=== PATIENT | female | born 1940 | race Caucasian/White ===

== ENCOUNTER → 2016-09-19 17:52 | Outpatient (CLI) | payer MEDICARE, OTHER ==
[2010-09-19 09:17] VITALS: BMI 29.2
== END | disposition home or self-care (01) ==
LOC: D.MAMMO 07-31 10:00
DX: R92.2 Inconclusive mammogram (principal)

== ENCOUNTER 2016-11-12 13:12 | Outpatient (CLI) | payer MEDICARE, OTHER ==
[~2016-11-12] VITALS: Ht 162.6 cm; Wt 77.3 kg
[2016-11-12] MEDS ORDERED: SINEMET CR 50-1 EACH PO (13:56)
[2016-11-12] MEDS ORDERED: LOPRESSOR25 MG PO (13:56)
[2016-11-12] MEDS ORDERED: KLONOPIN1 MG PO (13:57)
[2016-11-12] MEDS ORDERED: OS-CAL500 MG PO (13:57)
[2016-11-12] MEDS ORDERED: TRAZODONE HCL150 MG PO (13:57)
[2016-11-12] MEDS ORDERED: WELLBUTRIN SR150 MG PO (13:57)
[2016-11-12 14:06] VITALS: BP 131/71; Ht 162.6 cm; Wt 77.3 kg
--- NOTE | 2016-11-12 14:20 | NUR ---
1400- PROLIA INJECTION TO LEFT ARM LOT #: [id number] EXP: 05/19
== END 2016-11-12 14:20 | disposition home or self-care (01) ==
LOC: D.OPS 13:12
DX: M81.0 Age-related osteoporosis without current pathological fracture (principal)

== ENCOUNTER → 2016-11-22 13:08 | Outpatient (CLI) | payer MEDICARE, OTHER ==
[2016-11-12 14:06] VITALS: BMI 29.2
[~2016-11-22 13:08] MED LIST: KLONOPIN1 MG PO; LOPRESSOR25 MG PO; OS-CAL500 MG PO; SINEMET CR 50-1 EACH PO; TRAZODONE HCL150 MG PO; WELLBUTRIN SR150 MG PO
== END | disposition home or self-care (01) ==
LOC: D.CT 13:08
DX: I63.9 Cerebral infarction, unspecified (principal); R55 Syncope and collapse; D49.6 Neoplasm of unspecified behavior of brain; S06.5X0A Traumatic subdural hemorrhage without loss of consciousness, initial encounter

== ENCOUNTER → 2016-11-28 11:44 | Outpatient (CLI) | payer MEDICARE, OTHER ==
[2016-11-12 14:06] VITALS: BMI 29.2
== END | disposition home or self-care (01) ==
LOC: D.MRI 11:44
DX: I63.9 Cerebral infarction, unspecified (principal); R55 Syncope and collapse; D49.6 Neoplasm of unspecified behavior of brain; S06.5X0A Traumatic subdural hemorrhage without loss of consciousness, initial encounter; X58.XXXA Exposure to other specified factors, initial encounter; Y93.89 Activity, other specified; Y92.89 Other specified places as the place of occurrence of the external cause

== ENCOUNTER 2017-06-24 12:39 | Outpatient (CLI) | payer MEDICARE, OTHER ==
[~2017-06-24] VITALS: Ht 162.6 cm; Wt 79.5 kg
[2017-06-24 13:11] VITALS: Ht 162.6 cm; Wt 79.5 kg
== END 2017-06-24 13:53 | disposition home or self-care (01) ==
LOC: D.OPS 12:39
DX: M81.0 Age-related osteoporosis without current pathological fracture (principal)

== ENCOUNTER → 2017-08-20 10:22 | Outpatient (CLI) | payer MEDICARE, OTHER ==
[2017-06-24 13:11] VITALS: BMI 30.1
== END | disposition home or self-care (01) ==
LOC: D.CT 10:22
DX: R68.84 Jaw pain (principal)

== ENCOUNTER → 2018-08-03 07:43 | Outpatient (CLI) | payer MEDICARE, OTHER ==
[2017-06-24 13:11] VITALS: BMI 30.1
== END | disposition home or self-care (01) ==
LOC: D.RT 07:43
PROVIDERS: ATTEND Internal Medicine Pulmonary Disease
DX: J44.9 Chronic obstructive pulmonary disease, unspecified (principal)

== ENCOUNTER → 2018-09-08 19:39 | Outpatient (CLI) | payer MEDICARE, OTHER | END | disposition home or self-care (01) | LOC: D.MAMMO 19:39 | DX: Z12.31 Encounter for screening mammogram for malignant neoplasm of breast (principal) ==

== ENCOUNTER 2018-10-31 12:24 | Emergency (ER) | payer MEDICARE, OTHER ==
[2018-10-31 12:28] VITALS: BMI 32.7
[2018-10-31] MEDS ORDERED: ATIVAN0.5 MG (12:30)
[2018-10-31] MEDS ORDERED: SINGULAIR10 MG (12:31)
[2018-10-31] MEDS ORDERED: ADVAIR HFA [SP]12 GM INH (12:31)
[2018-10-31] MEDS ORDERED: [UNRECOGNIZED DRUG - OTHER] (12:31)
[2018-10-31] MEDS ORDERED: SINEMET CR 50-1 EACH PO (12:32)
[2018-10-31] MEDS ORDERED: MIRALAX17 GM PO (12:32)
[2018-10-31] MEDS ORDERED: KETAMINE (12:33)
[2018-10-31 13:00] LABS: BASOPHILS 0.4 % (0-2); EOSINOPHILS 2.4 % (0-7); HEMATOCRIT 41.1 % (36.0-48.0); HEMOGLOBIN 13.9 g/dL (12-16); IMMATURE GRANULOCYTES 0.2 % (0-5); LYMPHOCYTES 19.8 % (15-50); MCH 32.6 pg (26.0-34.0); MCHC 33.8 g/dL (31.0-37.0); MCV 96.5 fL (80.0-100.0); MEAN PLATELET VOLUME 9.7 fL (7.4-10.4); MONOCYTES 10.9 % (2-11); NEUTROPHILS 66.3 % (40-80); RBC 4.26 10x6/uL (4.00-5.40); RDW 13.5 % (11.5-14.5)
[2018-10-31 13:04] LABS: PLATELET COUNT 216 10x3/uL (130-400)
[2018-10-31 13:14] LABS: APPEARANCE CLEAR (CLEAR); BILIRUBIN NEGATIVE (NEGATIVE); COLOR YELLOW (YELLOW); GLUCOSE NEGATIVE (NEGATIVE); KETONE NEGATIVE (NEGATIVE); NITRITE NEGATIVE (NEGATIVE); PROTEIN NEGATIVE (NEGATIVE); SPECIFIC GRAVITY 1.025 (1.005-1.020); UROBILINOGEN NORMAL (NORMAL)
[2018-10-31 13:30] LABS: ALBUMIN 3.7 g/dL (3.4-5.0); ALKALINE PHOSPHATASE 120 U/L (46-116); ALT (SGPT) 16 U/L (10-68); AMYLASE - SERUM 54 U/L (25-115); BILIRUBIN - TOTAL 0.37 mg/dL (0.2-1.3); CALC OSMOLALITY 279 mosm/kg (275-300); CALCIUM 9.3 mg/dL (8.5-10.1); CARBON DIOXIDE 27.8 mmol/L (21.0-32.0); CHLORIDE - SERUM 103 mmol/L (98-107); CREATININE - SERUM 0.9 mg/dL (0.6-1.3); GLUCOSE 85 mg/dL (74-106); LIPASE 139 U/L (73-393); POTASSIUM - SERUM 3.9 mmol/L (3.5-5.1); SODIUM 140 mmol/L (136-145); TROPONIN-I < 0.017 ng/mL (0.000-0.060); UREA NITROGEN 18 mg/dL (7-18); eGFR NON AFRICAN AMERICAN 64 mL/min (90-120)
[2018-10-31] MEDS ORDERED: CHRONULAC30 ML PO (15:50)
[2018-10-31 16:04] VITALS: BP 132/78
== END 2018-10-31 16:05 | disposition home or self-care (01) ==
LOC: D.ER 12:24
PROVIDERS: Family Medicine
DX: K59.00 Constipation, unspecified (principal)

== ENCOUNTER 2018-11-08 12:14 | Emergency (ER) | payer MEDICARE, OTHER ==
[~2018-11-08] VITALS: Ht 162.6 cm; Wt 86.4 kg
[~2018-11-08 12:14] MED LIST changes: +ADVAIR HFA [SP]12 GM INH; +ATIVAN0.5 MG; +CHRONULAC30 ML PO; +KETAMINE; +MIRALAX17 GM PO; +SINGULAIR10 MG; +[UNRECOGNIZED DRUG - OTHER]
[2018-11-08 12:18] VITALS: Ht 162.6 cm; Wt 86.4 kg
[2018-11-08 14:30] LABS: APPEARANCE CLEAR (CLEAR); BILIRUBIN NEGATIVE (NEGATIVE); COLOR YELLOW (YELLOW); GLUCOSE NEGATIVE (NEGATIVE); KETONE NEGATIVE (NEGATIVE); NITRITE NEGATIVE (NEGATIVE); PROTEIN TRACE mg/dL (NEGATIVE); UROBILINOGEN NORMAL (NORMAL)
[2018-11-08 14:31] LABS: BACTERIA FEW /hpf (NONE SEEN); EPITHELIAL CELLS 0-5 /hpf (0-5); WHITE CELLS - URINE 0-5 /hpf (0-5)
[2018-11-08 15:09] VITALS: BP 123/71
== END 2018-11-08 15:10 | disposition home or self-care (01) ==
LOC: D.ER 12:14
PROVIDERS: Emergency Medicine
DX: K59.00 Constipation, unspecified (principal)

== ENCOUNTER 2018-11-20 14:31 | Emergency (ER) | payer MEDICARE, OTHER ==
[~2018-11-20] VITALS: Ht 162.6 cm; Wt 86.4 kg
[2018-11-20 14:46] VITALS: Ht 162.6 cm; Wt 86.4 kg
[2018-11-20 15:14] LABS: BASOPHILS 0.2 % (0-2); EOSINOPHILS 0.7 % (0-7); HEMATOCRIT 39.8 % (36.0-48.0); HEMOGLOBIN 13.6 g/dL (12-16); IMMATURE GRANULOCYTES 0.2 % (0-5); LYMPHOCYTES 20.7 % (15-50); MCH 32.1 pg (26.0-34.0); MCHC 34.2 g/dL (31.0-37.0); MCV 93.9 fL (80.0-100.0); MONOCYTES 9.2 % (2-11); PLATELET COUNT 209 10x3/uL (130-400); RBC 4.24 10x6/uL (4.00-5.40); RDW 13.5 % (11.5-14.5); WBC 4.3 10x3/uL (4.8-10.8)
[2018-11-20 15:16] LABS: APPEARANCE CLEAR (CLEAR); BILIRUBIN NEGATIVE (NEGATIVE); COLOR STRAW (YELLOW); GLUCOSE NEGATIVE (NEGATIVE); KETONE NEGATIVE (NEGATIVE); NITRITE NEGATIVE (NEGATIVE); PROTEIN NEGATIVE (NEGATIVE); SPECIFIC GRAVITY 1.005 (1.005-1.020); UROBILINOGEN NORMAL (NORMAL)
[2018-11-20 15:29] LABS: ALBUMIN 3.8 g/dL (3.4-5.0); ANION GAP 14.1 mmol/L (8-16); BILIRUBIN - TOTAL 0.48 mg/dL (0.2-1.3); CALCIUM 9.2 mg/dL (8.5-10.1); CREATININE - SERUM 0.8 mg/dL (0.6-1.3); POTASSIUM - SERUM 3.1 mmol/L (3.5-5.1); PROTEIN - SERUM 6.6 g/dL (6.4-8.2)
[2018-11-20 18:41] VITALS: BP 148/81
== END 2018-11-20 18:34 | disposition home or self-care (01) ==
LOC: D.ER 14:31
PROVIDERS: Family Medicine
DX: E86.0 Dehydration (principal); F41.9 Anxiety disorder, unspecified; K44.9 Diaphragmatic hernia without obstruction or gangrene

== ENCOUNTER → 2020-08-18 12:18 | Outpatient (CLI) | payer MEDICARE, OTHER ==
[2018-11-20 14:46] VITALS: BMI 32.7
== END | disposition home or self-care (01) ==
LOC: D.MRI 12:18
PROVIDERS: ATTEND Anesthesiology Pain Medicine
DX: M25.559 Pain in unspecified hip (principal); M16.10 Unilateral primary osteoarthritis, unspecified hip

== ENCOUNTER → 2020-09-02 09:22 | Outpatient (CLI) | payer MEDICARE, OTHER ==
[2018-11-20 14:46] VITALS: BMI 32.7
== END | disposition home or self-care (01) ==
LOC: D.LABREF 09:22
PROVIDERS: ATTEND Family Medicine
DX: R06.09 Other forms of dyspnea (principal)

== ENCOUNTER → 2020-09-07 09:15 | Outpatient (CLI) | payer MEDICARE, OTHER ==
[2018-11-20 14:46] VITALS: BMI 32.7
== END | disposition home or self-care (01) ==
LOC: D.RT 07-17 10:00
PROVIDERS: ATTEND Family Medicine
DX: R06.09 Other forms of dyspnea (principal)